=== PATIENT | female | born 1945 | race Caucasian/White ===

== ENCOUNTER → 2017-03-20 | Outpatient (CLI) | payer OTHER ==
[~2017-03-20] MED LIST: ACETAMINOPHEN PO; ADVAIR 115-21 INH; ALBUTEROL1.25 MG/3 IH; ALBUTEROL17 GM NEB; ALEVE220 M1 PO; AMLODIPINE-BEN1 EAC3 PO; AMLODIPINE-BENA1 CAP PO; ANTIVERT PO; BENTYL20 MG PO; CENTRUM PO; CENTRUM SILVER PO; CENTRUM SILVER1 EAC2 PO; CENTRUM240 ML; CLONAZEPAM0.5 MG PO; COATED ASPIRIN325 M1 PO; COLACE PO; FERROUS SULFATE PO; FIBERCON625 MG PO; FLEXERIL PO; FLEXERIL10 M1 PO; FLONASE16 GM; FUROSEMIDE40 MG PO; GABAPENTIN600 MG PO; HUMIBID-LA600 MG PO; HYDROCODON-ACE1 EAC1 PO; HYDROCODON-ACE1 EAC7 PO; IBUPROFEN25 GM PO; KCL PO; KLONOPIN; KLONOPIN PO; KLONOPIN0.5 M1 PO; KLONOPIN0.5 M2 PO; LAMICTAL PO; LAMICTAL25 MG PO; LAMOTRIGINE25 M1 PO; LASIX; LASIX PO; LASIX20 MG PO; LEVOTHYROXINE75 MC1 PO; LISINOPRIL10 MG PO; LORTAB 5/500 TA1 TA1 PO; LORTAB 7.5-5001 TAB PO; LOTREL 10/20 CA1 CAP PO; LOTREL 10/20 MG1 CAP; LOTREL 10/20 MG1 CAP PO; LOVENOX40 MG/0.4 INJ; MEDROL4 MG/DOSE- PO; MELOXICAM15 MG PO; MICRO-K; MOTRIN600 MG PO; MULTI-VITAMIN1 TAB; NASALIDE25 ML; NEPHROCAPS CAPSU1 MG PO; NEURONTIN; NEURONTIN PO; NEURONTIN600 MG PO; NORVASC PO; PANTOPRAZOLE SO40 MG PO; POTASSIUM CHLO10 MEQ PO; PRILOSEC PO; PRILOSEC20 MG PO; PROAIR HFA8.5 GM INH; PROTONIX PO; PROVENTIL INH0.5 ML HHN; STOOL SOFTNER; SUPER B-COMPL400 MCG PO; SYNTHROID PO; SYNTHROID88 MCG PO; TIROSINT88 MCG PO; TYLOX 5/500 CAP1 CAP PO; ULTRAM PO; VICODIN 5/500 T1 TAB PO; ZELNORM; ZITHROMAX500 MG PO; ZOCOR PO; ZYLOPRIM100 MG PO
--- NOTE | ~2017-03-20 | CT116 ---
[facility] A Service of [facility] & [facility] RADIOLOGY TEXT RESULTS PATIENT: FRANK MANLEY LOCATION: [facility] : 41 UNIT #: [id number] AGE: [address]: Marcell Graham MD SEX: F ORDER DR: [id number] [facility] [address] [place], [place] [address] [id number] O MR#: [id number] Acc #: [id number] NAME: FRANK MANLEY : 1945 SEX: F STUDY DATE/TIME: 03/20/2017 15:21 UNIT: [facility] ROOM: STUDY DESCRIPTION: CT Soft Tissue Neck Wo Cont Attending Physician: Marcell Graham Jr., M.D. Referring Physician: Marcell Graham Jr., M.D. Ordering Physician: Marcell Graham Jr., M.D. Primary Care Physician: Marcell Graham Jr., M.D. MEDICAL IMAGING REPORT This report is preliminary unless electronic signature is present EXAM CT neck without contrast. HISTORY 68-year-old female with right-sided neck mass x 3 weeks. Difficulty swallowing for 4 months. IV contrast withheld due to low renal function. COMPARISON CT neck 07/13/2011. TECHNIQUE Axial images performed from the skull base to the celine without contrast. Multiplanar reconstructed images. This CT exam was performed with one or more of the following radiation dose reduction techniques: automatic exposure control, adjustment of mA and/or kV according to patient size, and iterative reconstruction. FINDINGS There is a sizeable mass within the inferior posterior aspect of the right parotid gland at the level of the angle of the mandible. The mass measures 1.1 x 1.6 cm in transverse dimensions and 2.7 cm cephalocaudal dimension. It is unclear whether this represents an enlarged node or represents a primary parotid lesion such as a Warthin tumor or pleomorphic and adenoma. On review of the CT scan 2010 there is an enhancing structure within the posterior parotid gland which could represent a small neoplasm or lymph node at that time, but was relatively small at no more than 6 mm. Left parotid gland unremarkable. The thyroid gland appears atrophic. Submandibular glands unremarkable. No significant head and neck lymphadenopathy. The skull base and visualized sinuses unremarkable. 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 By the report, the patient has had a thyroidectomy. The changes in the upper thorax could be related to STS. [facility] A Service of [facility] RADIOLOGY TEXT RESULTS PATIENT: FRANK MANLEY LOCATION: [facility] : 43 UNIT #: [id number] AGE: [address]: Marcell Graham MD SEX: F ORDER DR: radiation treatment. Correlate clinically. There is advanced degenerative disc disease cervical spine with anterolisthesis C4 on C5. Mild retrolisthesis C5 on C6. Multilevel facet arthropathy. Vascular structures poorly assessed on this noncontrast study. In the area marked by the patient's a gel capsule, no discrete mass lesions identified. Patient does demonstrate a prominent external jugular vein at this level. IMPRESSION 1. 1.1 x 1.6 x 2.7 cm isodense mass within the inferior posterior aspect of the right parotid gland. It is unclear whether this represents adenopathy or a primary parotid lesion. The latter is favored and there may have been a very small lesion in the parotid gland on the 2010 study. If elected, further evaluation with ultrasound and ultrasound guided FNA could be performed. IV contrast was withheld on this study due to patient's decreased renal function. 2. No mass seen in the region of the patient's palpable lesion or area of concern. 3. 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 4. The patient is status post thyroidectomy. By report the patient has had a right thyroidectomy, but no normal-appearing left lobe is identified and may reflect atrophy. 5. Moderately advanced multilevel degenerative disc disease cervical spine. Dictated by... Kimberly Mcclendon M.D. THIS IS AN ELECTRONICALLY VERIFIED REPORT Kimberly Mcclendon M.D. at 03/21/2017 5:07 PM Sandeep TD: 03/21/2017 14:58 JOB #: [id number] MEDICAL IMAGING REPORT Page 1 of 1 COPY
[2017-03-20 16:11] LABS: POC - CREATININE 1.19 mg/dL (0.44-1.03)
== END | disposition home or self-care (01) ==
LOC: CCAT 14:48
PROVIDERS: Family Medicine
DX: R22.1 Localized swelling, mass and lump, neck (principal); C73 Malignant neoplasm of thyroid gland; K11.8 Other diseases of salivary glands; J84.10 Pulmonary fibrosis, unspecified; E89.0 Postprocedural hypothyroidism; M50.30 Other cervical disc degeneration, unspecified cervical region
CPT/HCPCS: 70490; 82565

== ENCOUNTER → 2017-05-09 | Outpatient (CLI) | payer OTHER ==
--- NOTE | ~2017-05-09 | XA230 ---
[facility] A Service of [facility] & [facility] RADIOLOGY TEXT RESULTS PATIENT: FRANK MANLEY LOCATION: [facility] : 41 UNIT #: [id number] AGE: [address]: Darrius Coker MD SEX: F ORDER DR: [id number] [facility] [address] [place] [address] [place], [place] [address] [id number] O MR#: [id number] Acc #: [id number] NAME: FRANK MANLEY : 1945 SEX: F STUDY DATE/TIME: 05/09/2017 9:41 UNIT: [facility] ROOM: STUDY DESCRIPTION: XA FNA Attending Physician: Darrius Coker M.D. Referring Physician: Darrius Coker M.D. Ordering Physician: Darrius Coker M.D. Primary Care Physician: Marcell Graham Jr., M.D. MEDICAL IMAGING REPORT This report is preliminary unless electronic signature is present EXAM Ultrasound-guided needle aspiration of a right parotid nodule, 04/20/2017 HISTORY Remote history of thyroid cancer with recently diagnosed right parotid mass. PROCEDURE Using real-time ultrasound guidance, a 25-gauge needle was used for aspiration of right parotid mass. There are no complications and the patient tolerated procedure well. Standard alcohol preparation was utilized. IMPRESSION Technically successful ultrasound-guided needle aspiration of a right parotid nodule without immediate complication. Static ultrasound image was preserved. Dictated by... Joe Esparza M.D. THIS IS AN ELECTRONICALLY VERIFIED REPORT Joe Esparza M.D. at 05/11/2017 2:08 PM TEV/bd TD: 05/10/2017 07:15 JOB #: [id number] MEDICAL IMAGING REPORT Page 1 of 1 COPY
== END | disposition home or self-care (01) ==
LOC: CIVR 08:56
DX: K11.8 Other diseases of salivary glands (principal); Z85.850 Personal history of malignant neoplasm of thyroid; J30.9 Allergic rhinitis, unspecified
CPT/HCPCS: 76942; 88173